=== PATIENT | female | born 1990 | race Caucasian/White ===

== ENCOUNTER 2025-02-11 15:50 | Emergency (ER) | payer MEDICAID ==
[~2025-02-11] VITALS: Ht 162.6 cm; Wt 62.2 kg
[2025-02-11 16:06] VITALS: BP 149/91; PULSE 91; RESP 16; TEMP 97.7; O2SAT 100
[2025-02-11] MEDS ORDERED: CEPH-585 PO (16:14)
== END 2025-02-11 16:57 | disposition home or self-care (01) ==
LOC: ER 15:51
DX: H01.001 Unspecified blepharitis right upper eyelid (principal); R22.0 Localized swelling, mass and lump, head; F41.9 Anxiety disorder, unspecified; F32.A Depression, unspecified; F12.90 Cannabis use, unspecified, uncomplicated; Z72.89 Other problems related to lifestyle
CPT/HCPCS: 99283